=== PATIENT | male | born 2005 | race Hispanic/Latino ===

== ENCOUNTER 2023-05-11 13:55 | Outpatient (CLI) | payer BC | END 2023-05-11 13:56 | disposition home or self-care (01) | LOC: BICULT 13:55 | PROVIDERS: ATTEND Nurse Practitioner Family | DX: N63.12 Unspecified lump in the right breast, upper inner quadrant (principal) ==

== ENCOUNTER 2023-07-28 14:16 | Outpatient (CLI) | payer BC | END 2023-07-28 14:17 | disposition home or self-care (01) | LOC: ULT 14:16 | PROVIDERS: ATTEND Plastic Surgery | DX: N50.9 Disorder of male genital organs, unspecified (principal); I86.1 Scrotal varices | CPT/HCPCS: 76870; 93976 ==